=== PATIENT | female | born 1955 | race Caucasian/White ===

== ENCOUNTER → 2020-07-09 | Outpatient (CLI) | payer OTHER, SELFPAY ==
--- NOTE | 2020-07-09 | IMM_PTH ---
PATIENT: ALEX RAMIREZ LOC: [facility] U#:[id number] AGE/SX: 64/F ROOM: RE07/09/[address]: Dr. Branden Castro MD : 1955 BED: DIS: 07/09/2020 SPEC #: [id number] RECD: 07/11/20 12:51 STATUS: JIN DRE #: [id number] GILBERT: 07/09/20 00:[address]: Branden Castro DEPT: IMMUNOHISTOCHEMISTRY RECD BY: Ambar Gomez Tissues: A - Endometrium, NOS Procedures: Juan Ret (add) CK8 (add) Vimentin (add) CK7 (initial) PHYSICIAN & INSTITUTION [place] [id number] SPECIMEN INFORMATION: Tissue Source: A - Endometrial biopsy Clinical Info: N93.0, N84.1 Specimen Number: [id number] CPT code: 20357, 69235 x3 METHODOLOGY: Deparaffinized sections of prefer/formalin-fixed tissue or PAP/DQ stained slides are incubated with monoclonal/polyclonal antibodies/oligonucleotide probes. Localization is made via biotin free immunoperoxidase method. Appropriate controls are performed and reacted as expected. Results on target cell population are indicated in the following table: RESULTS: ANTIBODY / CLONE RESULT Block A CK7 (OV-TL12/30) positive CK8 ([id number]) positive CALRET (polyclonal) negative Vimentin (V9) positive These tests were developed and their performance characteristics determined by [facility]. They may not have been cleared or approved by the U.S. Food and Drug Administration. The FDA has determined that such clearance or approval is not necessary. The above immunohistochemical/dualISH markers are ordered and reviewed by the Pathologist. INTERPRETATION: A. Endometrial biopsy: Fragments of benign endometrial tissue with focal cystic changes. SJ:olya 07/12/20
--- NOTE | 2020-07-09 10:30 | EMB_PTH ---
PATIENT: ALEX RAMIREZ LOC: [facility] U#:[id number] AGE/SX: 64/F ROOM: RE07/09/[address]: Dr. Branden Castro MD : 1955 BED: DIS: 07/09/2020 SPEC #: [id number] RECD: 07/10/20 11:46 STATUS: JIN ERICKSON #: [id number] GILBERT: 07/09/20 10:[address]: Branden Castro DEPT: SURGICAL PATHOLOGY RECD BY: Aubrey Allen Tissues: A - Endometrium, NOS B - Uterine cervix, NOS Procedures: Surgery Specimen Level IV HEADER OPERATION: Endometrial biopsy / cervical polyp removal PRE-OP DIAGNOSIS: N93.0 N84.1 TISSUE SUBMITTED: A - Endometrial biopsy, B - Cervical polyp MICROSCOPIC DIAGNOSIS A. Endometrial biopsy: Strips of benign endometrial epithelium and superficial fragments of benign endometrial tissue, consistent with inactive endometrium with focal cystic changes. See comment. B. Cervical polyp: Benign endocervical polyp. STEPHANIE:olya 07/11/20 COMMENT A. Immunohistochemistry ([id number]) supports the above diagnosis. Clinical correlation and appropriate follow up are necessary. MICROSCOPIC DESCRIPTION Slides are reviewed. GROSS DESCRIPTION A - Received in fixative is one container labeled with the patient's name and designated EM biopsy. The specimen consists of multiple irregular fragments of denton mucoid tissue that in aggregate measure 1 x 0.5 x 0.1 cm. The specimen is totally submitted in one cassette. B - Received in fixative is one container labeled with the patient's name and designated cervical polyp. The specimen consists of multiple irregular fragments of denton to hemorrhagic soft tissue that in aggregate measure 1 x 0.7 x 0.2 cm. The specimen is totally submitted in one cassette. / STEPHANIE:olya 07/10/20 TC:5 CPT: 59429 x2
== END | disposition home or self-care (01) ==
PROVIDERS: Visit Provider Obstetrics & Gynecology
DX: N93.0 Postcoital and contact bleeding (principal); N84.1 Polyp of cervix uteri
CPT/HCPCS: 88305; 88341; 88342

== ENCOUNTER 2021-07-17 06:54 | Day surgery (SDC) | payer OTHER, SELFPAY ==
--- NOTE | 2021-07-16 12:12 | EKG12_ITS ---
Test Reason : PREOP Blood Pressure : / mmHG Vent. Rate : 065 BPM Atrial Rate : 065 BPM P-R Int : 150 ms QRS Dur : 070 ms QT Int : 438 ms P-R-T Axes : 043 -07 007 degrees QTc Int : 455 ms Normal sinus rhythm Normal ECG Confirmed by ADRYAN ANDERS, FRANNIE ([id number]), assignment desk editor ZHANNA BOYD ([id number]) on 07/17/2021 9:00:44 AM Referred By: Branden Castro Confirmed By:FRANNIE CORNELIUS MD
--- NOTE | 2021-07-16 13:11 | HP.PCM_ITS ---
History and Physical Date of Admission: 07/17/21 Surgical History and Physical Reyna Cruz, a 65 year old female 2 0 0 0 2, presents for D and C and hysteroscopy on July 17, 2021 at 7:30. -- Thickened EM on U/S -- Recent pelvic u/s with thickened endometrium of 8mm. Denies any vaginal bleeding. MEDICATIONS HISTORY: Patient is also takin. levothyroxine 75 mcg tablet, 1qd 2. simvastatin 20 mg tablet, 1 qd 3. Calcium 600 + D(3) 600 mg calcium- 200 unit capsule, 1po qday 4. Vitamin D3 50 mcg (2,000 unit) capsule, 1po qday ALLERGIES: NKA Infections - Chicken pox Illnesses - Depression, Arthritis Accidents - None Hospitalizations - see surgery Review of Systems: GENERAL - Denies fever, or chills SKIN - Denies skin changes EYES - Denies visual changes EARS - Denies difficulty hearing NOSE - Denies nasal congestion or bleeding MOUTH - Denies sore throat or difficulty swallowing NECK - Denies pain or swelling RESPIRATORY - Denies shortness of breath or wheezing CARDIOVASCULAR - Denies palpitations or chest pain GASTROINTESTINAL - Denies nausea, vomiting, diarrhea, constipation GENITOURINARY - Denies dysuria, frequency of urination, incontinence of urine MUSCULOSKELETAL - Denies joint or muscle pain NEUROLOGICAL - Denies localized numbness or weakness PSYCHIATRIC - Denies depression or anxiety ENDOCRINE - Denies heat or cold intolerance, weight loss or gain HEMATO-IMMUNOLOGIC - Denies excesive bleeding with cuts SOCIAL HISTORY: Alcohol Use - RARELY Smoking - denies smoking Diet - balanced Diet Lifestyle - low stress lifestyle and Exercise - walking Seat Belt Use - always Employer - Retired Illicit Drug Use - denies use of street drugs Sexual Activity - Spouse-Sig Other Name - Santhosh Cruz Spouse-Sig Other Occupation - Retired Children Name(s) - 2 children Control - postmenopausal FAMILY HISTORY: MENSTRUAL HISTORY: LMP Known?- Postmenopausal PAST PREGNANCIES: Total Pregnancies - 2; Full Term Pregnancies - 2; Premature - 0; Abortions, Induced - 0; Abortions, Spontaneous - 0; Ectopics - 0; Multiple Births - 0; Living Children - 2 SURGICAL HISTORY: 1. cholecystectomy, PHYSICAL EXAM BP- 126/88 Sitting, Right arm, regular cuff Weight- 139.23126 lbs Height- 62 inch BMI:25.4 CONSTITUTIONAL - NAD, well nourished, and well developed SKIN - No rash, lesions, or ulcers HEENT - Normocephalic, PERRLA, EOMI NECK - No nodes, no nuchal rigidity and thyroid normal size and texture LYMPH NODES - Palpation of lymph nodes in neck and groins within normal limits LUNGS - CTA x2 without wheezes, crackles or rales CARDIAC - Regular rate and rhythm without rubs, murmurs, or gallops ABDOMEN - Without hepatosplenomegaly, distention, masses, rebound, or guarding; normal bowel sounds; no hernias and some tenderness to deep palpation on left lower abdomen EXTREMITIES - No edema or calf tenderness NEUROLOGICAL - Cranial nerves II-XII grossly intact PSYCHIATRIC - A and O to time, place, person, mood and affect External Genitial Vagina - non-tender without lesions Urethra/Urethral Meatus - non-tender Bladder - non-tender Vagina - loss of rugae Cervix - without cervical motion tenderness and has normal size and features wi thout evident lesions Uterus - 5-6 cm in size, mobile and nontender Adnexa - clear without massess or tenderness ASSESSMENT/PLAN: 1. Abnormal Findings On Diagnostic Imaging Of Other Specified Body Structures Recent pelvic u/s with thickened endometrium of 8mm. Discussed need for proceeding with D and C and H/S. Discussed RBAs and all questions answered.
[2021-07-16 13:41] LABS: Hematocrit 42.8 % (37-47); Mean Corp Hgb Conc 32.7 g/dL (32-36); Mean Corpuscular Hgb 28.6 pg (27.0-32.0); Mean Corpuscular Volume 87.3 fL (81-99); Mean Platelet Vol. 9.1 fl (6.2-12.0); Platelet Count 411 K/mm3 (150-450); RBC Distribution Width CV 13.1 % (11.6-14.6); RBC Distribution Width SD 41.6 fl (35.1-43.9); White Blood Count 11.4 K/mm3 (4.4-11.0)
[2021-07-16 13:50] LABS: International Normalized Ratio 0.9
[2021-07-16 14:16] LABS: ALB/GLOB Ratio 0.8 RATIO (0.9-2.4); AST(SGOT) 27 U/L (15-37); Alanine Aminotransfer ALT/SGPT 42 U/L (13-56); Albumin, Serum 3.5 g/dL (3.2-5.0); Alkaline Phosphatase 65 U/L (45-117); Anion Gap 5 (5-15); BUN 16 mg/dL (7-18); BUN/Creat Ratio 18.3 RATIO (10-20); Calcium,Total 9.3 mg/dL (8.5-10.1); Chloride 104 mmol/L (98-107); Creatinine, Serum 0.87 mg/dL (0.55-1.02); EST Glomerular Filtration Rate 69 mL/min (>60); Est Glom Filt Rate - Afr Amer 83 mL/min (>60); Globulin 4.3 g/dL (2.2-4.2); Glucose 86 mg/dL (74-106); Potassium 3.7 mmol/L (3.5-5.1); Protein, Total 7.8 g/dL (6.4-8.2); Sodium Level 137 mmol/L (136-145)
[2021-07-17] VITALS (7 sets, daily range): BP systolic 102–123; BP diastolic 72–89; PULSE 57–68; RESP 14–18; TEMP 36.1–36.8; O2SAT 93–98; BMI 25.7
--- NOTE | 2021-07-17 | CER_PTH ---
PATIENT: ALEX RAMIREZ LOC: [facility] U#:[id number] AGE/SX: 65/F ROOM: RE07/17/[address]: Dr. Branden Castro MD : 1955 BED: DIS: 07/17/2021 SPEC #: [id number] RECD: 07/17/21 13:59 STATUS: JIN DRE #: [id number] GILBERT: 07/17/21 00:[address]: Branden Castro DEPT: SURGICAL PATHOLOGY RECD BY: Reed Ruby ENTERED: 07/18/21 09:09 SP TYPE: CERV OTHR DR: VIOLETA Gutierrez Tissues: A - Uterine cervix, NOS B - Endometrium, NOS Procedures: Surgery Specimen Level IV HEADER OPERATION: Hysteroscopy, D & C PRE-OP DIAGNOSIS: Recent pelvic ultrasound with thickened endometrium of 8 mm TISSUE SUBMITTED: A ? Endocervical curetting, B ? Endometrial curetting MICROSCOPIC DIAGNOSIS A. Endocervical curettings: Minute fragments of benign endocervical mucosa with acute and chronic inflammation and mucous. See comment. B. Endometrial curettings; Fragments of benign endometrial polyp with simple cystic hyperplasia without atypia. STEPHANIE:olya 07/21/2021 COMMENT A. The specimen predominantly consists of mucoid tissue. MICROSCOPIC DESCRIPTION Slides are reviewed. GROSS DESCRIPTION A - Received in fixative is one container labeled with the patient's name and designated endocervical curettings. The specimen consists of multiple irregular fragments of denton mucoid tissue that in aggregate measure 1.5 x 1 x 0.1 cm. The specimen is totally submitted in one cassette. B - Received in fixative is one container labeled with the patient's name and designated endometrial curettings. The specimen consists of three variable pieces of denton-pink polyp measuring 0.5 to 1.5 cm in greatest dimension. Also present in the container are a few fragments of hemorrhagic soft tissue that in aggregate measure 1.5 x 0.5 x 0.1 cm. The largest polyp is bisected. The entire specimen is submitted in one cassette. / STEPHANIE:olya 07/18/21 TC:5 CPT: 96414 x2
[2021-07-17] MEDS: Lactated Ringers 1,000 ML 15 ML IV (07:10)
--- NOTE | 2021-07-17 08:28 | PCM.OPRPT ---
Report of Operation Date of Procedure: 07/17/21 Pre-Operative Diagnosis: Thickened Endometrium Post-Operative Diagnosis: Thickened Endometrium, Endometrial Polyp Surgery/Procedure Performed:: Diagnostic Hysteroscopy, Fractional Dilation and Curettage Description of Surgical Findings:: 6 cm endometrial cavity with 1 x 2 cm endometrial polyp. Minimal tenaculum pulldown of cervix noted. Surgeon: Branden Castro Type of Anesthesia: MAC Anesthesiologist: Ronny Bahena Specimen's removed: Endometrial curettings including endometrial polyp Estimated Blood Loss (mL): Minimal Fluids Replaced: Crystalloid Description of Procedure: Surgeon: Branden Castro MD, FACOG Indications: This is a 65 year old patient who has the above diagnosis. The patient has been counseled regarding the risk and indications of this procedure including the possibility of bleeding, infection, and injury to surrounding structures such as bowel bladder. All questions were answered and we consider the patient well-informed. Procedure: The patient was taken to the operating room where after induction of general anesthesia, she was placed in the dorsolithotomy position and prepped and draped in the usual sterile fashion. Anterior cervix was grasped with the tenaculum and dilated to about 4-5 mm. A 3 mm hysteroscope was placed in the uterus of the above findings were noted. Cervix was dilated to about 7-8 mm and uterus was gently curetted removing all contents. Hysteroscope was reinserted and all material was noted to be removed. In the course of the procedure approximately 100 cc of saline distending media was used and virtually all of this was recovered. Patient tolerated procedure well was taken to recovery room in satisfactory condition sponge instrument and needle counts were all reportedly correct. Estimated blood loss for the case was minimal. Specimens to pathology was endometrial curettings with endometrial polyp Grafts/Implants Used: None Complications None Admit VTE Documentation VTE Present on Admission: Yes VTE Mechan Device Prophylaxis: SCD's
--- NOTE | 2021-07-17 08:55 | PCM.DC ---
Discharge Instructions Diet Discharge Diet: No restrictions Activity Discharge Activity: Return to Normal Activity, May Shower and May Take a Tub Bath May resume sexual activity in: 1-2 weeks Additional Activity Instructions:: Nothing in vagina for 1 to 2 weeks. Okay the use ibuprofen or Tylenol per package directions for any cramping you may have over the next few days. Dressing / Incision Call your doctor if you observe: Fever of 101 or Higher, Inability to urinate and Inability to have a bowel movement Follow Up Care Please Follow Up With: Branden Castro MD When: 2 to 3 weeks Test Results: Test results from this visit will be discussed in further detail at your follow-up appointment, if applicable. Discharge Plan Admission Primary Reason for Your Visit: Dilation and Curettage Attending Provider: Branden Castro Primary Care Provider: Suzie Hernández Discharge Orders/Prescriptions Prescriptions: No Action calcium 600 mg Capsule 600 mg PO BID RF: 0 citalopram [Celexa] 20 mg Tablet 20 mg PO DAILY RF: 0 pravastatin 20 mg Tablet 20 mg PO QHS RF: 0 cholecalciferol (vitamin D3) [Vitamin D3] 50 mcg (2,000 unit) Capsule 50 mcg PO DAILY RF: 0 levothyroxine 75 mcg Capsule 75 mcg PO DAILY RF: 0 biotin 5,000 mcg Tablet,Disintegrating 5,000 mcg PO DAILY RF: 0 Keravive 2 cap PO/SL DAILY RF: 0 Other Ambulatory Orders: 12 Lead EKG (Routine) Timeframe: [id number] Location: None Selected Ordered By: Dr. Branden Castro Referrals / Follow Up: Suzie Hernández PA [Primary Care Provider] - Disposition Disposition (needs filled in before D/C Order can be placed): Home, Self Care
[2021-07-17] MEDS: Lactated Ringers 1,000 ML 100 ML IV (09:08)
[2021-07-17] MEDS: Acetaminophen 500 MG Tablet 1000 MG PO (09:36)
== END 2021-07-17 10:15 | disposition home or self-care (01) ==
LOC: SDC 06:56 → AC 06:57
PROVIDERS: PCP Physician Assistant; Referring Provider Obstetrics & Gynecology; Visit Provider Obstetrics & Gynecology
PROC: 0UDB8ZZ Extraction of Endometrium, Via Natural or Artificial Opening Endoscopic (ICD-10-PCS; CPT 58558; principal; 2021-07-17 08:25)
DX: N84.0 Polyp of corpus uteri (principal); E07.9 Disorder of thyroid, unspecified; F32.A Depression, unspecified; Z78.0 Asymptomatic menopausal state; Z79.899 Other long term (current) drug therapy; Z79.890 Hormone replacement therapy
CPT/HCPCS: 58558; 36415; 80053; 85027; 85610; 85730; 86850; 86900; 86901; 88305; 93005; J7120

== ENCOUNTER 2021-09-22 05:25 | Day surgery (SDC) | payer OTHER, SELFPAY ==
[2021-09-17 12:24] LABS: Hemoglobin 14.6 g/dL (12.0-15.0); Mean Corp Hgb Conc 32.4 g/dL (32-36); Mean Corpuscular Hgb 28.3 pg (27.0-32.0); Mean Corpuscular Volume 87.4 fL (81-99); Mean Platelet Vol. 8.9 fl (6.2-12.0); Platelet Count 491 K/mm3 (150-450); RBC Distribution Width CV 12.6 % (11.6-14.6); RBC Distribution Width SD 39.8 fl (35.1-43.9); Red Blood Count 5.15 M/mm3 (4.2-5.4); White Blood Count 10.8 K/mm3 (4.4-11.0)
[2021-09-17 12:29] LABS: Prothrombin Time (Protime)PT. 12.2 SECONDS (11.7-14.9)
[2021-09-17 12:30] LABS: Partial Thromboplast Time 28.8 Seconds (24.1-36.2)
[2021-09-17 13:10] LABS: ALB/GLOB Ratio 0.8 RATIO (0.9-2.4); AST(SGOT) 21 U/L (15-37); Alanine Aminotransfer ALT/SGPT 29 U/L (13-56); Albumin, Serum 3.7 g/dL (3.2-5.0); Alkaline Phosphatase 66 U/L (45-117); Anion Gap 7 (5-15); BUN 14 mg/dL (7-18); BUN/Creat Ratio 16.8 RATIO (10-20); Calcium,Total 9.7 mg/dL (8.5-10.1); Chloride 104 mmol/L (98-107); Creatinine, Serum 0.83 mg/dL (0.55-1.02); EST Glomerular Filtration Rate 73 mL/min (>60); Est Glom Filt Rate - Afr Amer 88 mL/min (>60); Globulin 4.7 g/dL (2.2-4.2); Glucose 99 mg/dL (74-106); Protein, Total 8.4 g/dL (6.4-8.2); Sodium Level 138 mmol/L (136-145)
[2021-09-17 13:27] LABS: Magnesium 2.3 mg/dL (1.6-2.6); Thyroid Stim Hormone (TSH) 2.15 uIU/mL (0.358-3.74)
--- NOTE | 2021-09-19 09:35 | PCM.HP.BLA ---
History and Physical Date of Admission: 09/22/21 Surgical History and Physical Reyna Cruz, a 65 year old female 2 0 0 0 2, presents for RAVH/BSO on September 22, 2021. -- Postmenopausal Bleeding; Simple EM Hyperplasia -- Recent D and C for EM polyps showed simple EM hyperplasia. We discussed simple hyperplasia in the postmenopausal patient desires to proceed with robotic assisted vaginal hysterectomy and bilateral salpingo-oophorectomy. Discussed risks, benefits, and alternatives and the patient desires we proceed. MEDICATIONS HISTORY: Patient is also takin. levothyroxine 75 mcg tablet, 1qd 2. simvastatin 20 mg tablet, 1 qd 3. Calcium 600 + D(3) 600 mg calcium- 200 unit capsule, 1po qday 4. Vitamin D3 50 mcg (2,000 unit) capsule, 1po qday ALLERGIES: NKA Infections - Chicken pox Illnesses - Depression, Arthritis Accidents - None Hospitalizations - see surgery Review of Systems: GENERAL - Denies fever, or chills SKIN - Denies skin changes EYES - Denies visual changes EARS - Denies difficulty hearing NOSE - Denies nasal congestion or bleeding MOUTH - Denies sore throat or difficulty swallowing NECK - Denies pain or swelling RESPIRATORY - Denies shortness of breath or wheezing CARDIOVASCULAR - Denies palpitations or chest pain GASTROINTESTINAL - Denies nausea, vomiting, diarrhea, constipation GENITOURINARY - Denies dysuria, frequency of urination, incontinence of urine MUSCULOSKELETAL - Denies joint or muscle pain NEUROLOGICAL - Denies localized numbness or weakness PSYCHIATRIC - Denies depression or anxiety ENDOCRINE - Denies heat or cold intolerance, weight loss or gain HEMATO-IMMUNOLOGIC - Denies excesive bleeding with cuts SOCIAL HISTORY: Alcohol Use - RARELY Smoking - denies smoking Diet - balanced Diet Lifestyle - low stress lifestyle and Exercise - walking Seat Belt Use - always Employer - Retired Illicit Drug Use - denies use of street drugs Sexual Activity - Residence - owns a home Place of - [place], [place] Spouse-Sig Other Name - Santhosh Cruz Spouse-Sig Other Occupation - Retired Children Name(s) - 2 children Control - postmenopausal FAMILY HISTORY: MENSTRUAL HISTORY: LMP Known?- Postmenopausal PAST PREGNANCIES: Total Pregnancies - 2; Full Term Pregnancies - 2; Premature - 0; Abortions, Induced - 0; Abortions, Spontaneous - 0; Ectopics - 0; Multiple Births - 0; Living Children - 2 SURGICAL HISTORY: 1. 07/17/2021 jysteroscopy, fractional D and C ; Branden Castro M.D. - 2. cholecystectomy, PHYSICAL EXAM BP- 104/78 Sitting, Right arm, regular cuff Weight- 136.0 lbs Height- 62 inch BMI:24.9 CONSTITUTIONAL - NAD, well nourished, and well developed SKIN - No rash, lesions, or ulcers HEENT - Normocephalic, PERRLA, EOMI NECK - No nodes, no nuchal rigidity and thyroid normal size and texture LYMPH NODES - Palpation of lymph nodes in neck and groins within normal limits LUNGS - CTA x2 without wheezes, crackles or rales CARDIAC - Regular rate and rhythm without rubs, murmurs, or gallops ABDOMEN - Without hepatosplenomegaly, distention, masses, rebound, or guarding; normal bowel sounds; no hernias and some tenderness to deep palpation on left lower abdomen EXTREMITIES - No edema or calf tenderness NEUROLOGICAL - Cranial nerves II-XII grossly intact PSYCHIATRIC - A and O to time, place, person, mood and affect External Genitial Vagina - non-tender without lesions Urethra/Urethral Meatus - non-tender Bladder - non-tender Vagina - loss of rugae Cervix - without cervical motion tenderness and has normal size and features without evident lesions Uterus - 5-6 cm in size, mobile and nontender Adnexa - clear without massess or tenderness ASSESSMENT/PLAN: Simple EM Hyperplasia. Discussed options for treatment and pt desires to proceed with robotic assisted vaginal hysterectomy and bilateral salpingo-oophorectomy. Discussed risks, benefits, and alternatives and the patient desires we proceed.
[2021-09-22] VITALS (10 sets, daily range): BP systolic 91–136; BP diastolic 67–92; PULSE 61–87; RESP 16–18; TEMP 36.2–36.6; O2SAT 93–98; BMI 25.2
--- NOTE | 2021-09-22 | HYST_PTH ---
PATIENT: ALEX RAMIREZ LOC: [facility] U#:[id number] AGE/SX: 65/F ROOM: RE09/22/[address]: Dr. Branden Castro MD : 1955 BED: DIS: 09/22/2021 SPEC #: [id number] RECD: 09/22/21 12:56 STATUS: JIN ANDREDione #: [id number] GILBERT: 09/22/21 00:[address]: Branden Castro DEPT: SURGICAL PATHOLOGY RECD BY: Reed Ruby ENTERED: 09/22/21 12:56 SP TYPE: HYSTERECT OTHR DR: MD Suzie Jc PA Tissues: Uterus, NOS Procedures: Surgery Specimen Level V HEADER OPERATION: ERAS, laparoscopic robotic hysterectomy, bilateral salpingo-oophorectomy PRE-OP DIAGNOSIS: Simple EM hyperplasia TISSUE SUBMITTED: Cervix, uterus, bilateral fallopian tubes and ovaries MICROSCOPIC DIAGNOSIS Uterus, hysterectomy: Cervix ? nabothian cysts and mild chronic inflammation. Endometrium ? inactive endometrium with focal cystic change. Myometrium ? leiomyoma. Right ovary ? benign epithelial inclusion cysts. Right fallopian tube - No pathologic change. Left ovary - benign epithelial inclusion cysts. Left fallopian tube - No significant pathologic change. AM:olya 09/23/2021 COMMENT Case has been reviewed in consultation with Dr. Parnell who concurs with the above diagnosis. IDC:STEPHANIE MICROSCOPIC DESCRIPTION Slides are reviewed. GROSS DESCRIPTION Received in fixative is one container labeled with the patient's name and designated cervix, uterus, bilateral fallopian tubes and ovaries. The specimen consists of a hysterectomy specimen consisting of uterus with cervix and attached bilateral fallopian tubes and ovaries. The uterus with cervix weighs 34 gm and measures 6.5 x 4 x 2.5 cm. A subserosal nodule is noted anteriorly. The serosal surface is denton, glistening. The ectocervical mucosa is unremarkable. The external os is circular in contour. The endocervical canal measures 2 cm in length and the endocervical mucosa is denton, glistening and unremarkable. Sections of the cervix reveal a few cysts filled with mucoid material. The triangular endometrial cavity measures 3.5 cm in length and up to 2 cm in width. The endometrium is denton, glistening without any mass lesion and measures 0.1 cm in thickness. Sections of the uterine wall reveal a denton, subserosal nodule measuring 1 cm in diameter. Sections of this mass reveals denton whorled cut surfaces without areas of hemorrhage, necrosis or cystic degeneration. The uninvolved uterine wall measures 1.2 cm in thickness. The right fallopian tube measures 6 cm in length and up to 0.3 cm in diameter. The fimbrial end is identified. Sections reveal unremarkable cut surfaces. The right ovary measures 2 x 0.5 x 0.5 cm. Sections reveal unremarkable cut surfaces. The left fallopian tube is similar appearance to right and measures 5 cm in length and 0.5 cm in diameter. The left ovary measures 1.5 x 1 x 0.5 cm. Sections reveal unremarkable cut surfaces. No tubo-ovarian adhesions are identified on both sides. Florist sections are submitted in nine cassettes as follows: 1 - anterior cervix, 2 - posterior cervix, 3 & 4 - anterior uterine wall, 5 & 6 - posterior uterine wall, entire endometrium is submitted, 7??nodular mass, 8 - right fallopian tube and ovary, 9 - left fallopian tube and ovary. / STEPHANIE:olya 09/22/2021 TC:1 CPT: 77196
[2021-09-22] MEDS: Acetaminophen 500 MG Tablet 1000 MG PO (06:08)
[2021-09-22] MEDS: Gabapentin 600 MG Tablet PO (06:08)
[2021-09-22] MEDS: Lactated Ringers 1,000 ML 40 ML IV (06:16)
[2021-09-22 06:20] LABS: Bedside Glucose 88 mg/dL (70-110)
--- NOTE | 2021-09-22 07:35 | PCM.OPRPT ---
Report of Operation Date of Procedure: 09/22/21 Pre-Operative Diagnosis: Simple Endometrial Hyperplasia, Postmenopausal Bleeding Post-Operative Diagnosis: Simple Endometrial Hyperplasia, Postmenopausal Bleeding Surgery/Procedure Performed:: Robotic Assisted Vaginal Hysterectomy and Bilateral Salpingo-Oophorectomy Description of Surgical Findings:: 8 cm uterus with normal-appearing fallopian tubes and ovaries. 1.5 cm anterior fundal fibroid. Some adhesions were noted between the uterus and bladder. Wide pedicles were noted on either side of the uterus with dense adhesions to the uterus. Surgeon: Branden Castro accounts receivable accountant: Santhosh Ramírez Type of Anesthesia: General (Endotracheal) Anesthesiologist: Krunal Willis Specimen's removed: Uterus and bilateral fallopian tubes and ovaries Drains: Vaca to straight drain (removed after procedure) Estimated Blood Loss (mL): Minimal Fluids Replaced: Crystalloid Description of Procedure: Surgeon: Branden Castro MD, FACOG Indication: This is a 65year old patient who has been having problems with simple hyperplasia and postmenopausal bleeding. Conservative measures have not been helpful. The patient has been counseled regarding the risks, benefits and alternatives of this procedure including the possibility of bleeding, infection, and injury to surrounding structures such as bowel bladder and all questions were answered. Procedure: Pt taken to the operating room where, after induction of general anesthesia, the patient was prepped and draped in the usual sterile fashion and placed on a non-slip Huggy-u-vac device. Trendelenburg test was satisfactory. Bladder was drained of urine with a Vaca catheter which was left in place. Anterior cervix grasped and cervix was dilated to about 3-4 mm. Uterus sounded to 6 cms. 0-Vicryl suture was placed at the 3:00 and 9:00 position of the cervix. A small [employer] Utility Worker Uterine Manipulator was then placed in the uterus and attention was turned to the laparoscopic portion of the procedure. Ropivocaine 0.5% was injected approximately 2-3 cm superior to the umbilicus and an 8 mm robotic camera port was introduced directly with intraperitoneal placement confirmed with CO2 insufflation. 8 mm robotic side ports were introduced under direct visualization approximately 11 cm lateral and 2 cm inferior to the umbilical port. A 5 mm left upper quadrant port was introduced and airseal insufflation with CO2 was started. The above findings were noted. Robot was docked without difficulty and attention turned to the robotic portion of the procedure. Approximately 30 cc of Ropivicaine was used. Bilateral infundibulopelvic ligaments were ligated with 35 baxter bipolar coagulation to the level of the round ligament. The posterior aspect of the cervix was identified and then opened for about 1 cm using 25 watt monopolar cautery. Bladder flap was opened and divided to the level of the round ligaments using monopolar cautery. Progressive bites were then ligated on each side of the cervix with 35 baxter bipolar cautery to the uterine arteries. The anterior vaginal mucosa was entered and cervix circumscribed with monopolar cautery. Uterus and attached tubes and ovaries were removed through the vagina. Vaginal cuff was closed first with 0-Vicryl Hugh stitches placed at each angle followed by closure of the mid-cuff with 0-Monocryl V-lock suture in two layers. Pelvis was copiously irrigated with saline and the right ureter was noted to peristalse. Robot was undocked and trocars were removed with as much gas as possible. Incisions were closed with 4-0 Monocryl subcuticular sutures and incisions covered with steri-strips. The patient tolerated the procedure well and was taken to the recovery room in satisfactory condition. Sponge, instruments and needle counts were all correct. There were no apparent complications of the surgery. Ancef 2 gms IV was given prior to the procedure. Estimated Blood Loss: Minimal Specimen to Pathology: Uterus and bilateral tubes and ovaries Grafts/Implants Used: None Complications None Admit VTE Documentation VTE Present on Admission: Yes VTE Mechan Device Prophylaxis: SCD's
--- NOTE | 2021-09-22 07:38 | PCM.DC ---
Discharge Instructions Diet Discharge Diet: No restrictions Activity Discharge Activity: May Shower and May Take a Tub Bath May resume sexual activity in: 6 weeks (nothing in the vagina.) Lifting Restrictions: 25 pounds for 6 weeks. Additional Activity Instructions:: Nothing in the vagina for 6 weeks please; no lifting more than 20-25 lbs for 6 weeks. Use Ibuprophen 800 mg orally every 8 hours as needed for pain. Can also add Tylenol 1000 mg every 8 hours if needed for pain. If Ibuprophen and Tylenol are not effective then use the Oxycodone but keep in mind it can cause serious constipation issues. Drink lots of water. Call if bleeding more than a pad per hour. Use the colace as constipation is a big issue after this type of surgery. Steps and walking are OK. Activity is encouraged but do not over do it !! Dressing / Incision Call your doctor if your incision/area has: Continuous Slow Oozing, Sudden Increased Bleeding, Increased Pain/ Swelling, Increased Redness and Foul Smelling Discharge Call your doctor if you observe: Fever of 101 or Higher, Inability to urinate, Inability to have a bowel movement, Using more than 1 pad per hour and - (Some vaginal bleeding may be noted for up to 4-8 weeks.) Cleanse incision/area with: - (Let the soapy water run over your incision, rinse and pat dry.) Additional Dressing/Incision Instructions:: The white strips (Steri Strips) on your incisions will fall off on their own. If they fall off and it bothers you it is okay to put Band-Aids across the incisions. Follow Up Care Please Follow Up With: Branden Castro MD When: Call [phone] for an appointment to be seen in 2 weeks. Test Results: Test results from this visit will be discussed in further detail at your follow-up appointment, if applicable. Discharge Plan Admission Primary Reason for Your Visit: Robotic Vaginal Hysterectomy Attending Provider: Branden Castro Primary Care Provider: Suzie Hernández Consulting Providers: Jeromy Souza Discharge Orders/Prescriptions Prescriptions: New docusate sodium 100 mg tablet 100 mg PO BID PRN (Reason: constipation) Qty: 60 RF: 1 oxycodone 5 mg capsule 5 mg PO Q6H PRN (Reason: pain) 7 Days Qty: 7 RF: 0 Continued calcium 600 mg Capsule 600 mg PO BID RF: 0 citalopram [Celexa] 20 mg Tablet 20 mg PO DAILY RF: 0 pravastatin 20 mg Tablet 20 mg PO QHS RF: 0 cholecalciferol (vitamin D3) [Vitamin D3] 50 mcg (2,000 unit) Capsule 50 mcg PO DAILY RF: 0 levothyroxine 75 mcg Capsule 75 mcg PO DAILY RF: 0 Referrals / Follow Up: Suzie Hernández PA [Primary Care Provider] - Disposition Disposition (needs filled in before D/C Order can be placed): Home, Self Care
[2021-09-22] MEDS: Ropivacaine 0.5% 30 ML Vial (08:20)
[2021-09-22] MEDS: Lactated Ringers 1,000 ML 100 ML IV ×2 (08:30→13:06)
[2021-09-22] MEDS: Ketorolac 15 MG/ML Vial IV (10:30)
[2021-09-22] MEDS: oxyCODONE 5 MG Tablet PO (11:30)
== END 2021-09-22 23:59 | disposition home or self-care (01) ==
LOC: SDC 05:27 → AC 05:27
PROVIDERS: Anesthesiology; PCP Physician Assistant; Referring Provider Obstetrics & Gynecology; Visit Provider Obstetrics & Gynecology
PROC: 0UT94ZZ Resection of Uterus, Percutaneous Endoscopic Approach (ICD-10-PCS; CPT 58262; principal; 2021-09-22 07:10)
DX: N85.01 Benign endometrial hyperplasia (principal); N95.0 Postmenopausal bleeding; N88.8 Other specified noninflammatory disorders of cervix uteri; D25.9 Leiomyoma of uterus, unspecified; N73.6 Female pelvic peritoneal adhesions (postinfective); L72.0 Epidermal cyst; E78.00 Pure hypercholesterolemia, unspecified; E07.9 Disorder of thyroid, unspecified; M19.90 Unspecified osteoarthritis, unspecified site; F32.A Depression, unspecified; Z79.899 Other long term (current) drug therapy
CPT/HCPCS: 58262; S2900; 00944; 36415; 80053; 82962; 83735; 84443; 85027; 85610; 85730; 86850; 86900; 86901; 88307; J7120; J2405